=== PATIENT | female | born 1960 | race Caucasian/White ===

== ENCOUNTER 2017-09-27 10:24 | Inpatient (IN) | payer MEDICAID ==
[~2017-09-27] VITALS: Ht 157.5 cm; Wt 117.9 kg
[~2017-09-27 10:24] MED LIST: BENTYL 20 MG TA20 M1 PO; CARISOPRODOL 3350 MG PO; CHLORTHALIDONE25 MG PO; COLESTIPOL HCL1 G1 PO; COZAAR 25 MG TA25 M1 PO; CYMBALTA60 MG PO; DUONEB 2.5-0.5 M3 ML INH; GABAPENTIN600 M1 PO; GLUCOPHAGE1000 MG PO; HALCION0.25 MG PO; HYDROCODON-ACE1 EAC5 PO; LAMICTAL100 MG PO; LAMICTAL150 MG PO; LEVALBUTER1.25 MG/0. INH; LEVAQUIN 750 M750 MG PO; METFORMIN HCL500 MG PO; MUCINEX600 MG PO; NORCO 10-325 T1 EACH PO; ONDANSETRON HCL4 M2 PO; PHENERGAN 25 MG25 M1 PO; PREDNISONE 10 M10 MG PO; PREDNISONE 20 M20 MG PO; PROTONIX 20 MG20 M1 PO; PULMICORT0.5 MG/2 M INH; SINGULAIR 10 MG10 M1 PO; SYMBICORT160 MCG/4. INH; TRAZODONE HCL100 MG PO; ZPAK PO; ZYRTEC10 M5 PO
[2017-09-27 10:30] VITALS: BP 144/82
[2017-09-27 11:03] LABS: ABSOLUTE BASOPHILS 0.1 thou/uL (0.0-0.2); ABSOLUTE EOSINOPHILS 0.2 thou/uL (0.0-0.7); ABSOLUTE LYMPHOCYTES 1.7 thou/uL (0.8-5.3); ABSOLUTE MONOCYTES 0.4 thou/uL (0.0-1.2); ABSOLUTE NEUTROPHILS 6.9 thou/uL (1.6-8.1); BASOPHILS 1.1 %; HEMATOCRIT 47.1 % (37.0-47.0); HEMOGLOBIN 15.7 gm/dL (12.0-15.0); LYMPHOCYTES 18.4 %; MCH 30.8 pg (26.0-34.0); MCHC 33.3 g/dL (28.0-37.0); MCV 92.5 fL (80.0-100.0); MONOCYTES 4.2 %; MPV 8.5 fl. (7.2-11.1); NUCLEATED RBCS 0 /100WBC; PLATELET COUNT* 174 thou/uL (150-400); POLYS 74.3 %; RDW-CV 14.6 % (10.5-14.5); WBC 9.3 thou/uL (4.0-11.0)
[2017-09-27 11:14] LABS: ANION GAP 10 mmol/L (7-16); BUN 14 mg/dL (7-18); CALCIUM 9.4 mg/dL (8.5-10.1); CHLORIDE 99 mmol/L (98-107); CO2 30 mmol/L (21-32); CREATININE 0.8 mg/dL (0.6-1.3); GLUCOSE 164 mg/dL (70-99); POTASSIUM 3.6 mmol/L (3.5-5.1); SODIUM 139 mmol/L (136-145)
[2017-09-27 11:27] LABS: ALBUMIN 3.6 g/dL (3.4-5.0); ALKALINE PHOSPHATASE 87 U/L (46-116); NT-PRO BRAIN NAT PEPTIDE 94 pg/mL (<300); SGOT 17 U/L (15-37); SGPT 22 U/L (30-65); TOTAL BILIRUBIN 0.4 mg/dL (<0.1-1.0); TROPONIN-I LEVEL <0.06 ng/mL (<0.06)
[2017-09-27 13:46] VITALS: BP 143/95
[2017-09-27 15:00] VITALS: BP 137/93
[2017-09-27] MEDS ORDERED: TRAZODONE HCL100 MG PO (15:56)
[2017-09-27 19:40] VITALS: BP 108/50
[2017-09-28] VITALS: BP 135/69
[2017-09-28 04:00] VITALS: BP 126/68
[2017-09-28 04:59] LABS: HEMATOCRIT 42.7 % (37.0-47.0); HEMOGLOBIN 14.2 gm/dL (12.0-15.0)
[2017-09-28 07:30] VITALS: BP 142/70
[2017-09-28] MEDS ORDERED: XARELTO20 MG PO (09:17)
[2017-09-28 11:47] VITALS: BP 103/50
[2017-09-28 11:53] VITALS: BP 103/50
[2017-09-28] MEDS ORDERED: XARELTO15 MG PO (11:59)
--- NOTE | 2017-09-28 13:08 | EKG ---
[place] [address] ELECTROCARDIOGRAM REPORT Name: LAURA FERRIS Room: [address] ADM IN M.R.#: [id number] Admission: 09/27/17 Attend Phys: Quinton Faye MD Discharge: Date of : 64 Report #: [id number] THIS REPORT FOR: //name// [facility] ED Test Date: 2017-09-27 Test Time: 10:33:46 Pat Name: LAURA FERRIS Department: Room: [facility] Gender: F Physical Fitness Teacher: ANAY : 1960 Requested By: Spencer Causey Order Number: [id number] MD: Luke Diaz Measurements Intervals [place] Rate: 77 P: 19 WA: 125 QRS: 4 QRSD: 97 T: 31 QT: 404 QTc: 458 Interpretive Statements Sinus rhythm RSR' in V1 or V2, probably normal variant Compared to ECG 08/30/2017 12:10:56 RSR' in V1 or V2 now present T-wave abnormality no longer present Electronically Signed On 09-28-2017 13:08:30 OFFSET DUPLICATING MACHINE OPERATOR by Luke Diaz [email or web address] <ELECTRONICALLY SIGNED> By: Luke Diaz MD, FAC 09/28/17 1308 1033 1033 Luke Diaz MD, [facility] /EPI
== END 2017-09-28 13:24 | disposition home or self-care (01) | DRG 175 ==
LOC: M.ERS 10:24 → M.TBA-ER 12:53 → M.2W 13:58
PROVIDERS: Emergency Medicine Emergency Medical Services; ADMIT Internal Medicine
DX: I26.99 Other pulmonary embolism without acute cor pulmonale (principal); J96.21 Acute and chronic respiratory failure with hypoxia; J44.9 Chronic obstructive pulmonary disease, unspecified; K58.9 Irritable bowel syndrome, unspecified; E11.9 Type 2 diabetes mellitus without complications; F17.210 Nicotine dependence, cigarettes, uncomplicated; G47.33 Obstructive sleep apnea (adult) (pediatric); Z79.899 Other long term (current) drug therapy

== ENCOUNTER 2017-10-08 10:11 | Emergency (ER) | payer MEDICAID ==
[~2017-10-08] VITALS: Ht 152.4 cm; Wt 119.3 kg
[~2017-10-08 10:11] MED LIST changes: +XARELTO15 MG PO; +XARELTO20 MG PO
[2017-10-08 11:28] VITALS: BP 130/66
== END 2017-10-08 11:29 | disposition home or self-care (01) ==
LOC: M.ERS 10:11
DX: M25.512 Pain in left shoulder (principal); M25.532 Pain in left wrist; J44.9 Chronic obstructive pulmonary disease, unspecified; G47.30 Sleep apnea, unspecified; M79.7 Fibromyalgia; E11.9 Type 2 diabetes mellitus without complications; K58.9 Irritable bowel syndrome, unspecified; F17.210 Nicotine dependence, cigarettes, uncomplicated

== ENCOUNTER 2017-10-17 10:45 | Emergency (ER) | payer MEDICAID ==
[~2017-10-17] VITALS: Ht 157.5 cm; Wt 114.8 kg
[2017-10-17 11:52] LABS: ABSOLUTE BASOPHILS 0.1 thou/uL (0.0-0.2); ABSOLUTE EOSINOPHILS 0.1 thou/uL (0.0-0.7); ABSOLUTE LYMPHOCYTES 1.6 thou/uL (0.8-5.3); ABSOLUTE MONOCYTES 0.4 thou/uL (0.0-1.2); ABSOLUTE NEUTROPHILS 7.9 thou/uL (1.6-8.1); BASOPHILS 1.2 %; EOSINOPHILS 1.5 %; HEMATOCRIT 47.7 % (37.0-47.0); HEMOGLOBIN 15.9 gm/dL (12.0-15.0); LYMPHOCYTES 15.7 %; MCH 31.4 pg (26.0-34.0); MCHC 33.3 g/dL (28.0-37.0); MCV 94.4 fL (80.0-100.0); MONOCYTES 3.5 %; NUCLEATED RBCS 0 /100WBC; PLATELET COUNT* 180 thou/uL (150-400); POLYS 78.1 %; RBC 5.05 mil/uL (4.20-5.00); RDW-CV 15.2 % (10.5-14.5); WBC 10.1 thou/uL (4.0-11.0)
[2017-10-17 12:00] LABS: CALCIUM 8.9 mg/dL (8.5-10.1); CREATININE 0.9 mg/dL (0.6-1.3); POTASSIUM 3.7 mmol/L (3.5-5.1)
[2017-10-17 12:05] LABS: ALBUMIN 3.6 g/dL (3.4-5.0); TOTAL BILIRUBIN 0.5 mg/dL (<0.1-1.0)
[2017-10-17] MEDS ORDERED: PUROXCIN 4%-1%1 EACH TOP (12:36)
[2017-10-17] MEDS ORDERED: PERCOCET 5-3251 EACH PO (12:36)
[2017-10-17 12:49] VITALS: BP 139/86
--- NOTE | 2017-10-18 10:20 | EKG ---
[place] [address] ELECTROCARDIOGRAM REPORT Name: BARRINGTONLAURA CONNIE Room: [facility]#: [id number] Admission: 10/17/17 Attend Phys: Discharge: 10/17/17 Date of : 64 Report #: [id number] THIS REPORT FOR: //name// [facility] ED Test Date: 2017-10-17 Test Time: 10:52:39 Pat Name: LAURA FERRIS Department: Room: Gender: F Chemical Production Technician: Vineet ABERNATHY : 1960 Requested By: Jamie Duvall Order Number: [id number] MD: Keith Peraza Measurements Intervals [place] Rate: 90 P: 72 WA: 140 QRS: -48 QRSD: 99 T: 39 QT: 396 QTc: 485 Interpretive Statements Sinus rhythm LAD, consider left anterior fascicular block Low voltage, precordial leads Baseline wander in lead(s) II,III,aVF Compared to ECG 09/27/2017 10:33:46 no change Electronically Signed On 10-18-2017 10:20:27 DOG TRAINER by Keith Peraza [email or web address] <ELECTRONICALLY SIGNED> By: Keith Peraza MD, FAC 10/18/17 1020 1052 1052 Keith Peraza MD, [facility] /E[facility]
== END 2017-10-17 12:50 | disposition home or self-care (01) ==
LOC: M.ERS 10:45
PROVIDERS: Physician Assistant
DX: M79.602 Pain in left arm (principal); J44.9 Chronic obstructive pulmonary disease, unspecified; E11.9 Type 2 diabetes mellitus without complications; F17.210 Nicotine dependence, cigarettes, uncomplicated